=== PATIENT | male | born 1960 ===

== ENCOUNTER 2020-07-24 06:00 | Outpatient (RCR) | payer BC, SELFPAY | END 2020-08-04 23:59 | disposition home or self-care (01) | LOC: TPT 06:00 | PROVIDERS: PCP Nurse Practitioner; Referring Provider Surgery; Visit Provider Surgery | DX: M48.02 Spinal stenosis, cervical region (principal) | CPT/HCPCS: 97110; 97140; 97161 ==

== ENCOUNTER 2020-08-05 06:00 | Outpatient (RCR) | payer BC, SELFPAY | END 2020-09-04 23:59 | disposition home or self-care (01) | LOC: TPT 06:00 | PROVIDERS: PCP Nurse Practitioner; Referring Provider Surgery; Visit Provider Surgery | DX: M48.02 Spinal stenosis, cervical region (principal) | CPT/HCPCS: 97110; 97140 ==

== ENCOUNTER 2021-01-04 06:00 | Outpatient (RCR) | payer BC, SELFPAY | END 2021-01-04 23:59 | disposition home or self-care (01) | LOC: TPT 06:00 | PROVIDERS: PCP Nurse Practitioner; Referring Provider Orthopaedic Surgery; Visit Provider Orthopaedic Surgery | DX: M70.61 Trochanteric bursitis, right hip (principal) | CPT/HCPCS: 97110; 97162 ==

== ENCOUNTER 2021-01-05 06:00 | Outpatient (RCR) | payer BC, SELFPAY | END 2021-02-04 23:59 | disposition home or self-care (01) | LOC: TPT 06:00 | PROVIDERS: PCP Nurse Practitioner; Referring Provider Orthopaedic Surgery; Visit Provider Orthopaedic Surgery | DX: M70.61 Trochanteric bursitis, right hip (principal) | CPT/HCPCS: 97110 ==

== ENCOUNTER 2021-02-05 06:00 | Outpatient (RCR) | payer BC, SELFPAY | END 2021-03-06 23:59 | disposition home or self-care (01) | LOC: TPT 06:00 | PROVIDERS: PCP Nurse Practitioner; Referring Provider Orthopaedic Surgery; Visit Provider Orthopaedic Surgery | DX: M70.61 Trochanteric bursitis, right hip (principal) | CPT/HCPCS: 97110; 97140 ==